=== PATIENT | female | born 1980 | race Two or more races ===

== ENCOUNTER → 2017-02-23 | Outpatient (CLI) | payer OTHER ==
[~2017-02-23] VITALS: Ht 152.4 cm; Wt 138.8 kg
[~2017-02-23] MED LIST: ABILIFY5 MG; ALLEGRA ALLERG180 MG PO; BUSPIRONE HCL10 MG; DIVALPROEX SOD500 MG; FLONASE16 GM NS; GILTUSS TR TAB1 EACH PO; IRBESARTAN-HCT1 EAC1; LAMICTAL200 M1; NORVASC5 MG; TUSSI PRES-B L120 M1 PO; WELLBUTRIN100 MG; ZITHROMAX200 MG PO; ZITHROMAX500 MG PO; ZYRTEC10 MG PO
== END | disposition home or self-care (01) ==
LOC: PPHC 17:19
DX: J06.9 Acute upper respiratory infection, unspecified (principal)

== ENCOUNTER 2018-07-17 14:41 | Outpatient (CLI) | payer OTHER | END 2018-07-17 14:50 | disposition home or self-care (01) | LOC: LAB 14:41 | DX: J11.1 Influenza due to unidentified influenza virus with other respiratory manifestations (principal); R50.9 Fever, unspecified; A43.8 Other forms of nocardiosis ==

== ENCOUNTER → 2018-10-29 | Outpatient (CLI) | payer OTHER | END | disposition home or self-care (01) | LOC: RAD 16:15 | DX: R05 Cough (principal) ==

== ENCOUNTER 2020-02-05 12:30 | Outpatient (CLI) | payer OTHER | END 2020-02-05 14:54 | disposition home or self-care (01) | LOC: RAD 12:30 | PROVIDERS: ATTEND General Practice | DX: R05 Cough (principal) ==

== ENCOUNTER 2020-05-06 06:00 | Day surgery (SDC) | payer OTHER | END 2020-05-06 09:15 | disposition home or self-care (01) | LOC: AMB-ENDOS 06:00 | PROVIDERS: ATTEND Surgery | DX: K62.89 Other specified diseases of anus and rectum (principal); Z12.11 Encounter for screening for malignant neoplasm of colon; Z20.822 Contact with and (suspected) exposure to COVID-19 ==

== ENCOUNTER → 2020-06-10 08:00 | Outpatient (CLI) | payer OTHER ==
[~2020-06-10] VITALS: Ht 177.8 cm; Wt 137.0 kg
[~2020-06-10 08:00] MED LIST changes: +AMLODIPINE BESY10 MG PO; +CEFDINIR300 MG PO; +CLONIDINE HCL0.2 MG PO; +CYMBALTA60 MG PO; +DEPAKOTE ER500 MG PO; +DICY20TA PO; +FAMOTIDINE20 MG PO; +FLAGYL500MG PO; +FLONASE16 GM; +GABAPENTIN100 MG PO; +HYDRALAZINE HCL50 MG PO; +IBU800 MG PO; +INTESTINEX680 M1 PO; +JUNEL 1 MG-201 EACH; +JUNEL FE 1 MG-1 EACH PO; +LACTULOSE10 GM/152 PO; +LIDODERM1 EACH TOP; +LOSARTAN-HCTZ1 EAC2 PO; +MEGESTROL ACETA20 MG PO; +OXYCODONE HCL5 M1 PO; +PROTONIX40 MG PO; +TRI-LO-SPRINTE1 EACH; +ZYRTEC10 M3 PO
== END | disposition home or self-care (01) ==
LOC: LAB 08:00 → SURH 06-17 11:15 → EDSTATUS 06-17 11:15
PROVIDERS: ATTEND Surgery
DX: N80.5 Endometriosis of intestine (principal); N80.1 Endometriosis of ovary; Z12.11 Encounter for screening for malignant neoplasm of colon; Z03.818 Encounter for observation for suspected exposure to other biological agents ruled out

== ENCOUNTER 2020-06-10 18:40 | Inpatient (IN) | payer OTHER ==
[~2020-06-10] VITALS: Ht 177.8 cm; Wt 137.0 kg
[~2020-06-10 18:40] MED LIST changes: -AMLODIPINE BESY10 MG PO; -CEFDINIR300 MG PO; -CLONIDINE HCL0.2 MG PO; -CYMBALTA60 MG PO; -FAMOTIDINE20 MG PO; -FLAGYL500MG PO; -FLONASE16 GM; -GABAPENTIN100 MG PO; -HYDRALAZINE HCL50 MG PO; -INTESTINEX680 M1 PO; -JUNEL 1 MG-201 EACH; -LACTULOSE10 GM/152 PO; -LIDODERM1 EACH TOP; -MEGESTROL ACETA20 MG PO; -OXYCODONE HCL5 M1 PO; -TRI-LO-SPRINTE1 EACH
[2020-06-11] MEDS ORDERED: JUNEL 1 MG-201 EACH (08:14)
[2020-06-11] MEDS ORDERED: FLONASE16 GM (08:14)
[2020-06-11] MEDS ORDERED: TRI-LO-SPRINTE1 EACH (08:15)
[2020-06-23] MEDS ORDERED: GABAPENTIN100 MG PO ×2 (12:41)
[2020-06-23] MEDS ORDERED: OXYCODONE HCL5 M1 PO ×2 (12:41)
[2020-06-23] MEDS ORDERED: MEGESTROL ACETA20 MG PO ×2 (12:41)
[2020-06-23] MEDS ORDERED: HYDRALAZINE HCL50 MG PO ×2 (12:41)
[2020-06-23] MEDS ORDERED: INTESTINEX680 M1 PO ×2 (12:41)
[2020-06-23] MEDS ORDERED: CYMBALTA60 MG PO ×2 (12:41)
[2020-06-23] MEDS ORDERED: FAMOTIDINE20 MG PO ×2 (12:41)
[2020-06-23] MEDS ORDERED: CEFDINIR300 MG PO ×2 (12:41)
[2020-06-23] MEDS ORDERED: LIDODERM1 EACH TOP ×2 (12:41)
[2020-06-23] MEDS ORDERED: FLAGYL500MG PO ×2 (12:41)
[2020-06-23] MEDS ORDERED: DEPAKOTE ER500 MG PO ×2 (12:41)
[2020-06-23] MEDS ORDERED: LACTULOSE10 GM/152 PO ×2 (12:41)
[2020-06-23] MEDS ORDERED: CLONIDINE HCL0.2 MG PO ×2 (12:41)
[2020-06-23] MEDS ORDERED: AMLODIPINE BESY10 MG PO ×2 (12:41)
== END 2020-06-23 18:09 | disposition home or self-care (01) | DRG 660 ==
LOC: MEDI 18:40 → SEC-K 18:40 → MEDI 20:51
PROVIDERS: Urology; ADMIT Internal Medicine Geriatric Medicine; ATTEND Internal Medicine Geriatric Medicine
PROC: 30233N1 Transfusion of Nonautologous Red Blood Cells into Peripheral Vein, Percutaneous Approach (ICD-10-PCS; 2020-06-11)
PROC: 0T9380Z Drainage of Right Kidney Pelvis with Drainage Device, Via Natural or Artificial Opening Endoscopic (ICD-10-PCS; 2020-06-15)
PROC: 0T9480Z Drainage of Left Kidney Pelvis with Drainage Device, Via Natural or Artificial Opening Endoscopic (ICD-10-PCS; principal; 2020-06-15 09:00)
DX: N17.8 Other acute kidney failure (principal); N13.8 Other obstructive and reflux uropathy; I10 Essential (primary) hypertension; T39.395A Adverse effect of other nonsteroidal anti-inflammatory drugs [NSAID], initial encounter; N80.0 Endometriosis of uterus; E66.01 Morbid (severe) obesity due to excess calories; Z20.822 Contact with and (suspected) exposure to COVID-19; N13.39 Other hydronephrosis; F43.23 Adjustment disorder with mixed anxiety and depressed mood; D50.9 Iron deficiency anemia, unspecified

== ENCOUNTER 2020-06-26 14:01 | Inpatient (IN) | payer OTHER ==
[~2020-06-26] VITALS: Ht 177.8 cm; Wt 135.2 kg
== END 2020-07-07 15:24 | disposition home or self-care (01) | DRG 300 ==
LOC: ER 14:01 → MEDI 17:12
PROVIDERS: ADMIT Internal Medicine Geriatric Medicine; ATTEND Internal Medicine Geriatric Medicine
PROC: B54BZZZ Ultrasonography of Right Lower Extremity Veins (ICD-10-PCS; principal; 2020-06-26)
PROC: 06H03DZ Insertion of Intraluminal Device into Inferior Vena Cava, Percutaneous Approach (ICD-10-PCS; 2020-07-01)
PROC: 4A12X4Z Monitoring of Cardiac Electrical Activity, External Approach (ICD-10-PCS; 2020-07-03)
PROC: BW2110Z Computerized Tomography (CT Scan) of Abdomen and Pelvis using Low Osmolar Contrast, Unenhanced and Enhanced (ICD-10-PCS; 2020-07-03)
PROC: 8E0ZXY6 Isolation (ICD-10-PCS; 2020-07-03)
DX: I82.411 Acute embolism and thrombosis of right femoral vein (principal); I82.441 Acute embolism and thrombosis of right tibial vein; N39.0 Urinary tract infection, site not specified; B96.1 Klebsiella pneumoniae [K. pneumoniae] as the cause of diseases classified elsewhere; N80.8 Other endometriosis; D50.8 Other iron deficiency anemias; I47.1 Supraventricular tachycardia; F43.22 Adjustment disorder with anxiety; R19.09 Other intra-abdominal and pelvic swelling, mass and lump; Z20.822 Contact with and (suspected) exposure to COVID-19; I10 Essential (primary) hypertension

== ENCOUNTER → 2020-06-26 | Outpatient (CLI) | payer OTHER ==
[~2020-06-26] MED LIST changes: +AMLODIPINE BESY10 MG PO; +CEFDINIR300 MG PO; +CLONIDINE HCL0.2 MG PO; +CYMBALTA60 MG PO; +FAMOTIDINE20 MG PO; +FLAGYL500MG PO; +FLONASE16 GM; +GABAPENTIN100 MG PO; +HYDRALAZINE HCL50 MG PO; +INTESTINEX680 M1 PO; +JUNEL 1 MG-201 EACH; +LACTULOSE10 GM/152 PO; +LIDODERM1 EACH TOP; +MEGESTROL ACETA20 MG PO; +OXYCODONE HCL5 M1 PO; +TRI-LO-SPRINTE1 EACH
== END | disposition home or self-care (01) ==
LOC: NUCLEAR 12:26
PROVIDERS: ATTEND Internal Medicine Geriatric Medicine
DX: I82.501 Chronic embolism and thrombosis of unspecified deep veins of right lower extremity (principal)

== ENCOUNTER 2020-11-27 06:00 | Day surgery (SDC) | payer OTHER ==
[~2020-11-27 06:00] MED LIST changes: +CARVEDILOL6.25 M1 PO; +DOXAZOSIN MESYLA2 MG PO; +ELIQUIS5 M1 PO; +HYOSCYAMINE0.125 M1 SL; +RESTORIL7.5 MG PO
== END 2020-11-27 10:42 | disposition home or self-care (01) ==
LOC: CIR.AMB 06:00
PROVIDERS: ATTEND Urology
DX: N13.5 Crossing vessel and stricture of ureter without hydronephrosis (principal); Z20.822 Contact with and (suspected) exposure to COVID-19

== ENCOUNTER → 2020-12-17 | Outpatient (CLI) | payer OTHER | END | disposition home or self-care (01) | LOC: LAB 14:05 | PROVIDERS: ATTEND Urology | DX: R31.0 Gross hematuria (principal); N30.00 Acute cystitis without hematuria; N13.1 Hydronephrosis with ureteral stricture, not elsewhere classified ==

== ENCOUNTER 2021-03-26 06:21 | Day surgery (SDC) | payer OTHER ==
[~2021-03-26 06:21] MED LIST changes: +HORIZANT300 MG PO; +TAMSULOSIN HCL0.4 MG PO
== END 2021-03-26 14:05 | disposition home or self-care (01) ==
LOC: CIR.AMB 06:21
PROVIDERS: ATTEND Urology
DX: N30.20 Other chronic cystitis without hematuria (principal); Z87.448 Personal history of other diseases of urinary system

== ENCOUNTER 2021-04-08 10:17 | Outpatient (CLI) | payer OTHER | END 2021-04-08 10:18 | disposition home or self-care (01) | LOC: NUCLEAR 10:17 | PROVIDERS: ATTEND Urology | DX: R31.0 Gross hematuria (principal); N30.00 Acute cystitis without hematuria; N13.1 Hydronephrosis with ureteral stricture, not elsewhere classified ==

== ENCOUNTER 2021-06-01 10:07 | Outpatient (CLI) | payer OTHER | END 2021-06-01 10:13 | disposition home or self-care (01) | LOC: LAB 10:07 | DX: C56.1 Malignant neoplasm of right ovary (principal) ==

== ENCOUNTER 2021-06-02 05:53 | Day surgery (SDC) | payer OTHER ==
[~2021-06-02] VITALS: Ht 177.8 cm; Wt 112.5 kg
== END 2021-06-02 14:56 | disposition home or self-care (01) ==
LOC: CIR.AMB 05:53
PROVIDERS: ATTEND Urology
DX: N13.1 Hydronephrosis with ureteral stricture, not elsewhere classified (principal); R31.0 Gross hematuria; C53.0 Malignant neoplasm of endocervix; I10 Essential (primary) hypertension; N28.9 Disorder of kidney and ureter, unspecified; E66.9 Obesity, unspecified; Z79.01 Long term (current) use of anticoagulants; Z86.718 Personal history of other venous thrombosis and embolism; Z20.822 Contact with and (suspected) exposure to COVID-19